=== PATIENT | male | born 1960 | race Caucasian/White ===

== ENCOUNTER → 2017-06-27 | Day surgery (SDC) | payer OTHER ==
[~2017-06-27] MED LIST: GLUCAGON HCL 1 MG VIAL IVP ONE; INDOMETHACIN 50 MG SUPP PR PRN; LIDOCAINE 1% 2 ML INJ ID PRN; LR 1,000 ML IV ONE; LR 500 ML IV PRN; METOCLOPRAMIDE 10 MG/2 ML VIAL ONE; MIDAZOLAM 2 MG/2 ML VIAL ONE; NALOXONE HCL 0.4 MG/ML INJ IVP PRN; NS 500 ML IV SCH; PROMETHAZINE HCL 25 MG/ML INJ IVP PRN; PROPOFOL/EMULSION 500 MG/50 ML BOTTLE IV ONE; fentaNYL 100 MCG/2 ML INJ IVP PRN; fentaNYL 100 MCG/2 ML INJ ONE
--- NOTE | 2017-06-27 08:57 | PDANEPAE ---
ANE Past Medical History - Cardiovascular History Hx Hypertension: No Hx Arrhythmias: No Hx Chest Pain: No Hx Coronary Artery / Peripheral Vascular Disease: Yes Hx CHF / Valvular Disease: No Hx Palpitations: No - Pulmonary History Hx COPD: No Hx Asthma/Reactive Airway Disease: No Hx Recent Upper Respiratory Infection: Yes Hx Oxygen in Use at Home: No Hx Sleep Apnea: No Sleep Apnea Screening Result - Last Documented: Negative Pulmonary History Comment: exercise induced asthma - Neurologic History Hx Cerebrovascular Accident: No Hx Seizures: No Hx Dementia: No - Endocrine History Hx Diabetes: Yes Endocrine History Comment: type 11 diabetic - Renal History Hx Renal Disorders: No - Liver History Hx Hepatic Disorders: No - Neurological & Psychiatric Hx Hx Neurological and Psychiatric Disorders: No - Cancer History Hx Cancer: No - Congenital Disorder History Hx Congenital Disorders: No - GI History Hx Gastrointestinal Disorders: Yes Gastrointestinal History Comment: reflux,sub total colectomy - Other Health History Other Health History: upper and lower molars missing - Chronic Pain History Chronic Pain: No - Surgical History Prior Surgeries: EGD ANE Review of Systems Review of Systems: - Exercise capacity METS (RN): 5 METS ANE Patient History - Allergies Allergies/Adverse Reactions: No Known Allergies Allergy (Verified 05/31/17 16:22) - Home Medications Home Medications: Aspirin 81mg (*) 05/31/17 [Last Taken 06/23/17] Atorvastatin Calcium 05/31/17 [Last Taken 06/27/17 04:30] Claritin 05/31/17 [Last Taken 06/23/17] Metformin HCl 05/31/17 [Last Taken 06/25/17] Multi-Vitamin Daily 05/31/17 [Last Taken 06/23/17] Omeprazole 05/31/17 [Last Taken 06/27/17 04:30] Trazodone HCl 05/31/17 [Last Taken 06/26/17 23:00] - NPO status NPO Since - Liquids (Date): 06/26/17 NPO Since - Liquids (Time): 00:01 NPO Since - Solids (Date): 06/26/17 NPO Since - Solids (Time): 15:00 - Smoking Hx Smoking Status: Former smoker - Family Anes Hx Family Hx Anesthesia Complications: none ANE Labs/Vital Signs - Vital Signs Blood Pressure: 136/94 Heart Rate: 72 Respiratory Rate: 20 O2 Sat (%): 93 Height: 182.88 cm Weight: 97.522 kg ANE Physical Exam - Airway Mallampati Score: Class 2 - ASA Status ASA Status: II ANE Anesthesia Plan Total IV Anesthesia: Yes
--- NOTE | 2017-06-27 09:00 | PDGENHP ---
History & Physical Chief Complaint: duodenal polyp History of Present Illness: 56 year old male presents for removal of a large complex duodenal polyp Pertinent Past, Social, Family History: PMHx: FAP Relevant Physical Exam: HEENT: anicteric. Cv: RRR +s1s2. Lungs: CTAB. Abd: soft, nt, + bs Cardiorespiratory Assessment: ASA 2
--- NOTE | 2017-06-27 10:06 | POSTANESTH ---
Post Anesthetic Evaluation Cardiovascular Status: Normal, Stable Respiratory Status: Similar to Pre-op Cond. Level of Consciousness/Mental Status: Can Participate in Eval Pain Control: Adequate, Prn Tx Ordered Nausea/Vomiting Control: Adequate, Prn Tx Ordered Complications Possibly Related to Anesthesia: None Noted
[2017-06-27 10:30] VITALS: PULSE 80
[2017-06-27 10:37] VITALS: RESP 17; TEMP 98.2
[2017-06-27 11:04] VITALS: BP 113/78
[2017-06-27 11:25] VITALS: O2SAT 93
--- NOTE | 2017-06-27 23:42 | GIREPORT ---
[facility] [place] Surgical Services - Endoscopy Department Patient Name: Renato Sue Procedure Date: 06/27/2017 9:09 AM Patient Type: Outpatient Attending / ER Physician: Owen Wallace MD Procedure: Upper GI endoscopy Indications: Surveillance for malignancy due to personal history of Familial Adenoma tous Polyposis Patient Profile: 56 year old male with a history of FAP presents for EMR of duodenal nely yps. Providers: Owen Wallace MD Medicines: Monitored Anesthesia Care Complications: No immediate complications. Estimated blood loss: Minimal. Description of Procedure: After obtaining informed consent, the endoscope was passed under direct vision. Throughout the procedure, the patient's blood pressure, pulse, and oxygen saturations were monitored continuously. The Endoscope was intro duced through the mouth, and advanced to the second part of duodenum. The Endoscope was introduced through the mouth, and advanced to the. The up per GI endoscopy was accomplished without difficulty. The patient tolerated the procedure well. Findings: The examined esophagus was normal. A hiatal hernia was present. Multiple medium sessile polyps were found on the greater curvature of t he stomach. Biopsies were taken with a cold forceps for histology. Three polyps of 1-1.5cmm sessile polyps were found in the second portio n of the duodenum. The polyp was removed with a saline injection-lift techni que using a hot snare in a piecemeal fasion. APC was applied to the edges. TheResection and retrieval were complete. Estimated Blood Loss: Estimated blood loss was minimal. Post Op Diagnosis: - Normal esophagus. - Hiatal hernia. - Multiple gastric polyps. Biopsied. - Multiple duodenal polyps. Resected and retrieved. Recommendation: - Discharge patient to home (with escort). - Resume previous diet. - Continue present medications. - Await pathology results. - Repeat upper endoscopy in 3 months for surveillance. - Await pathology results. - Thank you for allowing me to participate in the care of your patient. Attending Participation: I personally performed the entire procedure. Owen Wallace MD Owen Wallace MD 06/27/2017 11:41:33 PM This report has been signed electronicallyOwen Wallace MD Number of Addenda: 0 Note Initiated On: 06/27/2017 9:09 AM [email or web address]
== END | disposition home or self-care (01) ==
LOC: FSGY 07:52
PROVIDERS: ATTEND Internal Medicine Gastroenterology
PROC: 0DB98ZX Excision of Duodenum, Via Natural or Artificial Opening Endoscopic, Diagnostic (ICD-10-PCS; principal; 2017-06-27 09:00)
PROC: 0DB68ZX Excision of Stomach, Via Natural or Artificial Opening Endoscopic, Diagnostic (ICD-10-PCS; principal; 2017-06-27 09:00)
DX: K31.7 Polyp of stomach and duodenum (principal); K44.9 Diaphragmatic hernia without obstruction or gangrene; E11.9 Type 2 diabetes mellitus without complications
CPT/HCPCS: J1610; J2250; J2704; J2765; J3010